=== PATIENT | male | born 1980 | race Caucasian/White ===

== ENCOUNTER 2017-10-22 16:01 | Emergency (ER) | payer SELFPAY ==
[~2017-10-22] VITALS: Ht 182.9 cm; Wt 82.0 kg
[~2017-10-22 16:01] MED LIST: CYCL5TAB PO; DIFL500T PO; Z.0.NO CURRENT MEDS
[2017-10-22 16:15] VITALS: BP 132/90; PULSE 93; RESP 18; TEMP 98.5; O2SAT 100
[2017-10-22] MEDS ORDERED: PROPARACAINE HCL 0.5% OPHT SOLN 15 ML BTL RIGHT EYE ONE (17:15)
[2017-10-22] MEDS ORDERED: POLY10O RIGHT EYE (17:25)
--- NOTE | 2017-10-22 17:25 | PD ---
HPI Chief Complaint: Eye Problems/Injury Time Seen by Provider: 17:05 Travel History International Travel<30 days: No Contact w/Intl Traveler<30days: No Traveled to known affect area: No History of Present Illness HPI 36-year-old male here for evaluation of right eye pain and discharge. Symptoms started this morning. Patient describes a pressure-like feeling in his eye that he rates as 7 out of 10 and feels as though his eye is bulging. In March of last year the patient had a significant infection to his eye and no longer has vision in this eye. 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 Vision in his left eye has been unaffected and he wears contacts in his left eye. Yesterday he felt somewhat feverish. He recently moved here from [place] and has no local physician or mica plate layer. [facility] Past Medical History Medical History: Denies Significant Hx Tetanus Vaccination: < 5 Years Past Surgical History Tympanostomy Tube: Yes Social History Alcohol Use: No Tobacco Use: Yes Substance Use: No Allergies-Medications (Allergen,Severity, Reaction): Coded Allergies: No Known Allergies (Verified Adverse Reaction, Unknown, 10/22/17) Reported Meds & Prescriptions Reported Meds & Active Scripts Active No Active Prescriptions or Reported Medications Review of Systems Except as stated in HPI: all other systems reviewed are Neg Physical Exam Narrative GENERAL: Well-developed, well-nourished, comfortable, no apparent distress. SKIN: Focused skin assessment warm/dry. HEAD: Atraumatic. Normocephalic. EYES: Right cornea is clouded with white ulceration approximately 2 mm just inferior to the central cornea. Fluorescein stain of the right eye shows that this abrasion lights up, no dendrites. There is mild right scleral injection. Clear discharge. Left pupil is 2 mm, round, reactive to light. EOMI. No proptosis. Pressure in the right eye is 13 mmHg. ENT: Mucous membranes pink and moist. CARDIOVASCULAR: Regular rate and rhythm. RESPIRATORY: No accessory muscle use. NEUROLOGICAL: Awake and alert. No obvious cranial nerve deficits. Motor grossly within normal limits. Normal speech. PSYCHIATRIC: Appropriate mood and affect; insight and judgment normal. Data Data Last Documented VS Vital Signs Date Time Temp Pulse Resp B/P (MAP) Pulse Ox O2 Delivery O2 Flow Rate FiO2 10/22/17 16:15 98.5 93 18 132/90 (104) 100 Orders Orders Proparacaine 0.5% Opth Soln (Alcaine 0.5 (10/22/17 17:15) Polymyxin/Trimethop Opht Soln (Polytrim (10/22/17 17:30) MDM Medical Decision Making Medical Screen Exam Complete: Yes Emergency Medical Condition: Yes Differential Diagnosis Corneal abrasion, iritis, endophthalmitis Narrative Course This is a 36-year-old male who has no vision in his right eye who is here for evaluation of right eye pain and discharge. He has a corneal ulceration, slight scleral injection, clear discharge. No proptosis. EOMI. Plan is to start him on antibiotic eyedrops and have him follow-up with ophthalmology as an outpatient. He did obtain relief of symptoms with proparacaine. He was advised when to return to the emergency department. He verbalizes understanding and agreement with plan. Diagnosis Primary Impression: Corneal ulcer Qualified Codes: H16.001 - Unspecified corneal ulcer, right eye Referrals: Desire Cortés MD 2 days Continuous Dryout Operator Helper Additional Instructions: Follow-up with mica plate layer Dr. Cortés in the next 2-3 days. Return to the emergency department for worsening symptoms or any other concerns. Scripts Polymyxin B-Trimethoprim Opth Drops (Polytrim Opth Drops) 10,000-0.1 Unit/Ml-% Soln 1 DROP RIGHT EYE Q6HR for Mgmt Bacterial Infection, #1 BOTTLE 0 Refills Prov: Malcom Morrison MD 10/22/17 Disposition: 01 DISCHARGE HOME Condition: Stable Malcom Morrison MD October 22, 2017 17:25
[2017-10-22] MEDS ORDERED: POLYMYXIN/TRIMETHOPRIM OPHT SOLN 10 ML BTL RIGHT EYE ONE (17:30)
== END 2017-10-22 17:59 | disposition home or self-care (01) ==
LOC: NEPD 16:01
DX: H16.001 Unspecified corneal ulcer, right eye (principal)
CPT/HCPCS: 99283